=== PATIENT | male | born 1985 | race Caucasian/White ===

== ENCOUNTER 2019-10-20 11:12 | Emergency (ER) | payer SELFPAY ==
[~2019-10-20] VITALS: Ht 182.9 cm; Wt 113.0 kg
[2019-10-20] MEDS ORDERED: IV NORMAL SALINE 1,000ML 1,000 ML IV SCH (11:21)
--- NOTE | 2019-10-20 11:24 | PHYS DOC ---
Past History Past Medical History: Bipolar Alcohol Use: None General Adult EDM: Chief Complaint: FLANK PAIN HPI: HPI: Patient is a 33-year-old male who presents to the emergency department for evaluation of relatively sudden onset left flank pain which began at about 2 AM. The pain radiates around towards anterior abdomen. He has not had any nausea, vomiting, diarrhea, denies any urinary symptoms, hematuria, or testicular pain. He has not had any fevers or chills. There are no alleviating or exacerbating factors to his symptoms. Review of Systems: Review of Systems: Constitutional: Denies fever or chills Eyes: Denies change in visual acuity HENT: Denies nasal congestion or sore throat Respiratory: Denies cough or shortness of breath Cardiovascular: Denies chest pain or edema GI: Denies nausea, vomiting, bloody stools or diarrhea : Denies dysuria, or hematuria. Does report left flank pain. Musculoskeletal: Denies back pain or joint pain Integument: Denies rash Neurologic: Denies headache, focal weakness or sensory changes Endocrine: Denies polyuria or polydipsia Lymphatic: Denies swollen glands Psychiatric: Denies depression or anxiety Heart Score: Risk Factors: Risk Factors: DM, Current or recent (<one month) smoker, HTN, HLP, family history of CAD, obesity. Risk Scores: Score 0 - 3: 2.5% MACE over next 6 weeks - Discharge Home Score 4 - 6: 20.3% MACE over next 6 weeks - Admit for Clinical Observation Score 7 - 10: 72.7% MACE over next 6 weeks - Early Invasive Strategies Physical Exam: PE: PHYSICAL EXAM: CONSTITUTIONAL: Well developed, well nourished HEAD: normocephalic, atraumatic EENT: PERRL, EOMI. Conjunctivae normal color, sclerae non-icteric; moist mucous membranes. NECK: Supple, non-tender; no meningismus. LUNGS: Lungs CTA, breathing even and unlabored. Normal air movement. HEART: Regular rate and rhythm, no murmur CHEST: No deformity; non-tender ABDOMEN: The abdomen is soft, there is mild tenderness to palpation to the left mid and lower abdomen without rebound or guarding, the remainder the abdomen is soft and non-tender, no masses or bruits. EXTREM: Normal ROM; no deformity, no calf tenderness. Normal pulses palpable in all extremities. There is no pedal edema. SKIN: No rash; no diaphoresis NEURO: Alert; normal speech and cognition; CN's grossly intact; strength grossly intact without focal deficit. BACK: There is left-sided CVA TTP. There is no bony tenderness to palpation of the thoracic or lumbar spine. Current Patient Data: Labs: Laboratory Tests Test 10/20/19 11:29 10/20/19 12:03 White Blood Count 7.8 x10^3/uL Red Blood Count 4.89 x10^6/uL Hemoglobin 15.4 g/dL Hematocrit 45.6 % Mean Corpuscular Volume 93 fL Mean Corpuscular Hemoglobin 31 pg Mean Corpuscular Hemoglobin Concent 34 g/dL Red Cell Distribution Width 13.4 % Platelet Count 211 x10^3/uL Neutrophils (%) (Auto) 85 % Lymphocytes (%) (Auto) 11 % Monocytes (%) (Auto) 4 % Eosinophils (%) (Auto) 0 % Basophils (%) (Auto) 1 % Neutrophils # (Auto) 6.7 x10^3uL Lymphocytes # (Auto) 0.8 x10^3/uL Monocytes # (Auto) 0.3 x10^3/uL Eosinophils # (Auto) 0.0 x10^3/uL Basophils # (Auto) 0.0 x10^3/uL Sodium Level 137 mmol/L Potassium Level 4.5 mmol/L Chloride Level 102 mmol/L Carbon Dioxide Level 28 mmol/L Anion Gap 7 Blood Urea Nitrogen 15 mg/dL Creatinine 1.8 mg/dL Estimated GFR (Cockcroft-Gault) 43.7 BUN/Creatinine Ratio 8 Glucose Level 121 mg/dL Calcium Level 9.6 mg/dL Total Bilirubin 0.4 mg/dL Aspartate Amino Transf (AST/SGOT) 24 U/L Alanine Aminotransferase (ALT/SGPT) 32 U/L Alkaline Phosphatase 75 U/L Total Protein 8.4 g/dL Albumin 4.3 g/dL Albumin/Globulin Ratio 1.0 Lipase 91 U/L Urine Collection Type Unknown Urine Color Yellow Urine Clarity Clear Urine pH >8.5 Urine Specific [place] 1.020 Urine Protein Trace Urine Glucose (UA) Neg mg/dL Urine Ketones (Stick) Neg mg/dL Urine Blood Trace Urine Nitrite Neg Urine Bilirubin Neg Urine Urobilinogen Dipstick 0.2 mg/dL Urine Leukocyte Esterase Neg Urine RBC 3-5 /HPF Urine WBC Occ /HPF Urine Squamous Epithelial Cells Few /LPF Urine Bacteria 0 /HPF Urine Mucus Slight /LPF Current Medications Medications (Trade) Dose Ordered Sig/Karin Route PRN Reason Start Time Stop Time Status Last Admin Dose Admin Sodium Chloride 1,000 ml @ 1,000 mls/hr Q1H IV 10/20/19 11:21 10/20/19 12:20 DC 10/20/19 11:31 Ketorolac Tromethamine (Toradol 30mg Vial) 30 mg 1X ONCE IVP 10/20/19 11:30 10/20/19 11:39 DC 10/20/19 11:32 Vital Signs: Vital Signs Date Time Temp Pulse Resp B/P (MAP) Pulse Ox O2 Delivery O2 Flow Rate FiO2 10/20/19 11:20 97.9 70 16 148/94 (112) 100 Room Air EKG: EKG: [] Radiology/Procedures: Radiology/Procedures: PROCEDURE: CT ABDOMEN PELVIS WO CONTRAST CT ABDOMEN PELVIS WO CONTRAST History: Reason: L flank pain / Spl. Instructions: / History: Technique: Noncontrast examination of the abdomen and pelvis. Coronal and sagittal reconstructions were performed. Exposure: One or more of the following individualized dose reduction techniques were utilized for this examination: 1. Automated exposure control 2. Adjustment of the mA and/or kV according to patient size 3. Use of iterative reconstruction technique. Comparison: None Findings: Lower chest: No consolidation or pleural effusion. Abdomen and pelvis: The liver, spleen, adrenal glands, pancreas and gallbladder are unremarkable. Mild left hydronephrosis. Left perinephric and periureteral fat stranding. Mildly dilated left ureter. 3 mm left ureterovesical junction obstructing calculus. No right hydronephrosis. Left mid renal cyst. No follow-up imaging is recommended per consensus recommendations based on imaging criteria.. Decompressed urinary bladder. Normal appendix. No evidence of bowel obstruction. Small retroperitoneal lymph nodes, likely reactive. No ascites. Tiny umbilical hernia. Bones: No pathologic osseous lesions. Impression: 1. 3 mm left ureterovesical junction obstructing calculus contributing to mild hydronephrosis and perinephric/perineural fat stranding.[] Course & Med Decision Making: Course & Med Decision Making Pertinent Labs and Imaging studies reviewed. (See chart for details) [] 12:40 PM: The patient is feeling somewhat better at this time. I discussed test results with the patient, the need for close urology follow-up and return precautions. I am doubtful that his somewhat elevated creatinine is an acute problem, given the time course of his condition and the mild hydronephrosis. However the importance of close outpatient follow-up for further reevaluation was discussed in detail. Robb Disclaimer: Robb Disclaimer: This electronic medical record was generated, in whole or in part, using a voice recognition dictation system. Departure Departure: Impression: Primary Impression: Kidney stone Disposition: HOME/RESIDENCE PRIOR TO ADM Condition: STABLE Patient Instructions: Diet for Kidney Stones, Kidney Stones Additional Instructions: Ibuprofen 400 mg every 6 hours as needed for pain. Do not use this medication for more than 1 week. Use the prescribed pain medication as needed for pain not controlled by ibuprofen.The prescribed medication may cause drowsiness. Use caution while taking. Strain your urine. If you find a kidney stone, bring it to your urology follow- up appointment, as this may help the urologist to determine what is causing the stone what you might be able to do to prevent this from happening in the future. Your creatinine was noted to be slightly elevated today at 1.8. This is a marker of kidney function. It is important that you undergo further outpatient evaluation to monitor your kidney function. Follow-up with [facility], for further evaluation. Please call [phone] to schedule an appointment. Scripts Tamsulosin Hcl (FLOMAX) 0.4 Mg Cap.er.24h 1 CAP PO DAILY for -, #30 CAP Prov: ELVI DIAS MD 10/20/19 Hydrocodone Bit/Acetaminophen (NORCO 5-325 TABLET) 1 Each Tablet 1 TAB PO Q6HRS PRN for PAIN, #20 TAB Prov: ELVI DIAS MD 10/20/19 Justification of Admission: Justification of Admission: Justification of Admission Dx: N/A ELVI DIAS MD Oct 20, 2019 11:24
[2019-10-20] MEDS ORDERED: KETOROLAC 30 MG/ML VIAL. IVP ONE (11:30)
[2019-10-20 11:36] LABS: BASO % 1 % (0-3); EOS % 0 % (0-3); HEMATOCRIT 45.6 % (39.0-53.0); HEMOGLOBIN 15.4 g/dL (13.0-17.5); LYMPH # 0.8 x10^3/uL (1.0-4.8); LYMPH % 11 % (24-48); MEAN CORPUSCULAR HEMOGLOBIN 31 pg (25-35); MEAN CORPUSCULAR HGB CONC 34 g/dL (31-37); MEAN CORPUSCULAR VOLUME 93 fL (79-100); MONO # 0.3 x10^3/uL (0.0-1.1); MONO % 4 % (0-9); NEUT # 6.7 x10^3uL (1.8-7.7); NEUT % 85 % (31-73); PLATELET COUNT 211 x10^3/uL (140-400); RED BLOOD COUNT 4.89 x10^6/uL (4.30-5.70); RED CELL DISTRIBUTION WIDTH 13.4 % (11.5-14.5); WHITE BLOOD COUNT 7.8 x10^3/uL (4.0-11.0)
[2019-10-20 11:47] LABS: CALCIUM 9.6 mg/dL (8.5-10.1); CREATININE 1.8 mg/dL (0.7-1.3); GFR 43.7; POTASSIUM 4.5 mmol/L (3.5-5.1)
[2019-10-20 11:52] LABS: ALBUMIN 4.3 g/dL (3.4-5.0); TOTAL BILIRUBIN 0.4 mg/dL (0.2-1.0); TOTAL PROTEIN 8.4 g/dL (6.4-8.2)
--- NOTE | 2019-10-20 12:10 | RAD ---
CT ABDOMEN PELVIS WO CONTRAST History: Reason: L flank pain / Spl. Instructions: / History: Technique: Noncontrast examination of the abdomen and pelvis. Coronal and sagittal reconstructions were performed. Exposure: One or more of the following individualized dose reduction techniques were utilized for this examination: 1. Automated exposure control 2. Adjustment of the mA and/or kV according to patient size 3. Use of iterative reconstruction technique. Comparison: None Findings: Lower chest: No consolidation or pleural effusion. Abdomen and pelvis: The liver, spleen, adrenal glands, pancreas and gallbladder are unremarkable. Mild left hydronephrosis. Left perinephric and periureteral fat stranding. Mildly dilated left ureter. 3 mm left ureterovesical junction obstructing calculus. No right hydronephrosis. Left mid renal cyst. No follow-up imaging is recommended per consensus recommendations based on imaging criteria.. Decompressed urinary bladder. Normal appendix. No evidence of bowel obstruction. Small retroperitoneal lymph nodes, likely reactive. No ascites. Tiny umbilical hernia. Bones: No pathologic osseous lesions. Impression: 1. 3 mm left ureterovesical junction obstructing calculus contributing to mild hydronephrosis and perinephric/perineural fat stranding. Electronically signed by: Josep Vazquez DO (10/20/2019 12:07 PM) [id number]
[2019-10-20 12:32] LABS: BACTERIA,URINE 0 /HPF (0-FEW); BILIRUBIN,URINE NEG (NEG); CLARITY,URINE CLEAR; COLOR,URINE YELLOW; GLUCOSE,URINE NEG (NEG); NITRITE,URINE NEG (NEG); SQUAMOUS EPITHELIAL CELL,UR FEW /LPF; UROBILINOGEN,URINE 0.2 mg/dL (0.2 mg/dL); WBC,URINE OCC /HPF (0-4)
[2019-10-20 12:37] VITALS: BP 142/76
[2019-10-20] MEDS ORDERED: TAMS0.4C97 PO (12:43)
[2019-10-20] MEDS ORDERED: HYDR-3165 PO (12:43)
== END 2019-10-20 12:59 | disposition home or self-care (01) ==
LOC: ER 11:12
DX: N13.2 Hydronephrosis with renal and ureteral calculous obstruction (principal); F32.9 Major depressive disorder, single episode, unspecified
CPT/HCPCS: 36415; 74176; 80053; 81001; 83690; 85025; 96374; 99284; J1885; J7030